=== PATIENT | male | born 1965 | race African-American/Black ===

== ENCOUNTER 2017-12-18 17:47 | Inpatient (IN) | payer OTHER ==
[~2017-12-18] VITALS: Ht 180.3 cm; Wt 89.9 kg
[2017-12-18 21:00] VITALS: BP 129/90
[2017-12-18 21:07] VITALS: BP 129/90
[2017-12-19 08:18] VITALS: BP 109/62
[2017-12-19 16:15] VITALS: BP 109/66
[2017-12-20 09:31] VITALS: BP 116/64
[2017-12-20 16:09] VITALS: BP 98/52
[2017-12-21 08:58] VITALS: BP 119/70
[2017-12-21 16:03] VITALS: BP 104/62
[2017-12-22 07:43] VITALS: BP 108/70
[2017-12-22 15:22] VITALS: BP 109/59
[2017-12-23 07:51] VITALS: BP 102/60
[2017-12-23] MEDS ORDERED: TRAZODONE HCL100 MG PO (11:22)
[2017-12-23] MEDS ORDERED: METHADONE10 MG PO ×2 (11:23→11:24)
== END 2017-12-23 16:15 | disposition other institution (70) | DRG 897 ==
LOC: 1WEST 17:47 → EDBD 20:29 → 1WEST 12-19 16:50
DX: F11.24 Opioid dependence with opioid-induced mood disorder (principal); F14.90 Cocaine use, unspecified, uncomplicated; R45.851 Suicidal ideations; R45.850 Homicidal ideations; Z59.0 Homelessness
CPT/HCPCS: 97150 GO; 97165 GO